=== PATIENT | female | born 2005 | race Caucasian/White ===

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

== ENCOUNTER 2023-05-01 15:21 | Emergency (ER) | payer MEDICAID ==
[~2023-05-01] VITALS: Ht 157.4 cm; Wt 56.6 kg
[~2023-05-01 15:21] MED LIST changes: +METR-145 PO; +PANT40TA2 PO
--- NOTE | 2023-05-01 15:44 | ED Cough/URI ---
General Chief Complaint: Fever-Adult/Adol Stated Complaint: FEVER/ACHY Nursing Triage Note: PT AMB TO RM 10 WITH CC OF CHILLS, FEVER, AND BODYACHES SINCE LAST PM. PT REPORTS FEVER OF 103.6 THIS AM. PT STATES LAST DOES OF TYLENOL AT APPROX 1100. PT REPORTS IS 10 WEEKS PREG. Source: patient Exam Limitations: no limitations History of Present Illness Date Seen by Provider: May 01, 2023 Time Seen by Provider: 15:31 Initial Comments Patient is a 17-year-old female G1, P0 who presents to the emergency room with a chief complaint of fevers, chills, body aches, headache onset last evening, early this morning. Patient is not COVID vaccinated, she does not get flu vaccines. She is approximately 10 weeks with an estimated due date of November 21, 2023. She states her cough is nonproductive. She is not short of carla ath. No abdominal pain. No dysuria, urgency or frequency. No abnormal vaginal discharge, no diarrhea. She denies known sick contacts but was in [place] about a week ago and went to a homecoming last evening. He has taken 1 Tylenol at 8 AM and 2 Tylenol at 11 AM this morning. She takes no daily medications other than vitamins. Her OB is Dr. Kaplan. She has not done any at home COVID testing. Timing/Duration: this morning Severity/Quality: dry cough Associated Symptoms: cough, fever/chills, headache, other (dizziness) Allergies and Home Medications Allergies Coded Allergies: ceftriaxone (Verified Allergy, Severe, 01/25/22) Penicillins (Verified Allergy, Unknown, 07/06/22) Patient Home Medication List Home Medication List Reviewed: Yes Cyclobenzaprine HCl (Cyclobenzaprine HCl) 5 Mg Tablet, 5 MG PO Q8H PRN for SPASMS Prescribed by: ROSALVA CEE on 02/05/222254 Metronidazole (Metronidazole) 500 Mg Tablet, 500 MG PO QID Prescribed by: CITLALI COLIN on 08/11/222238 Nitrofurantoin Monohyd/M-Cryst (Macrobid 100 mg Capsule) 100 Mg Capsule, 1 TAB PO BID Prescribed by: CITLALI COLIN on 07/20/22 0058 Pantoprazole Sodium (Protonix) 40 Mg Tablet.dr, 40 MG PO DAILY Prescribed by: CITLALI COLIN on 08/11/222238 Review of Systems Review of Systems Constitutional: see HPI, chills, fever EENTM: no symptoms reported Respiratory: cough Cardiovascular: no symptoms reported Gastrointestinal: no symptoms reported Genitourinary: no symptoms reported : Yes Expected Date of Delivery: Nov 21, 2023 Musculoskeletal: muscle cramps (body aches) Psychiatric/Neurological: Headache Past Yhooqjs-Tkulle-Yppgav Hx Patient Social History Tobacco Use?: No Substance use?: No Alcohol Use?: No Immunizations Up To Date Tetanus Booster (TDap): Less than 5yrs PED Vaccines UTD: Yes First/Initial COVID19 Vaccinat: none Second COVID19 Vaccination Zach: none Third COVID19 Vaccination Date: none Seasonal Allergies Seasonal Allergies: No Past Medical History Surgery/Hospitalization HX: DENIES Surgeries: No Respiratory: No Cardiac: Yes ("ENLARGED HEART" ) Neurological: No Reproductive Disorders: No Genitourinary: No Gastrointestinal: No Musculoskeletal: No Endocrine: No HEENT: No Cancer: No Psychosocial: Yes (POLYSUBSTANCE ABUSE) ADD/ADHD Integumentary: No Blood Disorders: No Physical Exam Vital Signs - First Documented 05/01/23 15:28 Temp 36.5 Pulse 116 Resp 16 B/P (MAP) 115/72 (86) Pulse Ox 98 Capillary Refill : Less Than 3 Seconds Height: 5'2.00" Weight: 125lbs. 2oz. 56.012587ma; 22.00 BMI Method:Stated General Appearance: WD/WN, no apparent distress Eyes: Bilateral Eye Normal Inspection, Bilateral Eye PERRL, Bilateral Eye EOMI HEENT: PERRL/EOMI, TMs normal, pharyngeal erythema Neck: lymphadenopathy (R), lymphadenopathy (L) (anterior cervical) Respiratory: lungs clear, normal breath sounds, no respiratory distress, no accessory muscle use Cardiovascular: regular rate, rhythm Gastrointestinal: soft Extremities: normal range of motion, non-tender, normal inspection, no pedal edema Neurologic/Psychiatric: alert, normal mood/affect, oriented x 3 Skin: normal color, warm/dry Procedures/Interventions Suture Size: 6-0 Progress/Results/Core Measures Suspected Sepsis SIRS Temperature: Pulse: 116 Respiratory Rate: 16 Blood Pressure / Mean: Results/Orders Lab Results Laboratory Tests Test 05/01/23 13:41 Range/Units Influenza Type A (RT-PCR) Not Detected Not Detecte Influenza Type B (RT-PCR) Not Detected Not Detecte SARS-CoV-2 RNA (RT-PCR) Detected H Not Detecte My Orders Orders - TANYA FARIA MD Covid 19 Inhouse Test (05/01/23 15:31) Influenza A And B By Pcr (05/01/23 15:31) Vital Signs/I&O 05/01/23 05/01/23 15:28 16:20 Temp 36.5 Pulse 116 112 Resp 16 16 B/P (MAP) 115/72 (86) 116/67 Pulse Ox 98 98 Capillary Refill : Less Than 3 Seconds Progress Note : Time: 15:44 Progress Note Patient seen and evaluated by me. Eval today includes physical exam and covid test. Pertinet phys exam findings - WDWN female in NAD. She is mildly tachycardic with normal temperature and BP. Lungs are clear. Heart is regular. Abdomen is soft and benign. DDx based on H&P - covid, nonspecific viral syndrome. Labs reviewed by me - Covid positive. Patient advised to drink fluids and use medications safe in such as pseudaphed or benadryl for congestion. I advised her to call her OB doctor tomorrow for further instructions for care. Patient has no clinical or objective findings to warrant further eval such as labs or IV fluids. All questions are sought and answered. Return precautions provided in both verbal and written format. Departure Impression Primary Impression: COVID-19 virus infection Disposition: 01 HOME, SELF-CARE Condition: Stable Departure-Patient Inst. Decision time for Depature: 15:41 Referrals: NO,LOCAL PHYSICIAN (PCP) Primary Care Physician MANJINDER KAPLAN DO Patient Instructions: COVID-19 and Add. Discharge Instructions: Drink lots of fluids to stay well-hydrated, water, Pedialyte, Gatorade. Call Dr Kaplan's office tomorrow morning first thing to see if she wants you to start any new medications for the Covid symptoms. You can take prie-ebd-uxsmxbu extra strength Tylenol 2 tablets every 6 hours as needed for fever and body aches. You can also take Sudafed and/or Benadryl for congestion. Robitussin is also safe in . Continue your vitamins. Please follow-up with Dr. Kaplan as scheduled. Return to the emergency department for any new, concerning or emergent complaints. TANYA FARIA MD May 01, 2023 15:44
[2023-05-01 16:20] VITALS: BP 116/67
== END 2023-05-01 16:20 | disposition home or self-care (01) ==
LOC: EDUNIT# 15:21 → ER 15:23
DX: O98.511 Other viral diseases complicating pregnancy, first trimester (principal); U07.1 COVID-19; R50.9 Fever, unspecified; Z3A.10 10 weeks gestation of pregnancy; Z28.310 Unvaccinated for COVID-19
CPT/HCPCS: 87636; 99283

== ENCOUNTER 2023-05-02 22:35 | Emergency (ER) | payer MEDICAID ==
[~2023-05-02] VITALS: Ht 157 cm; Wt 56.6 kg
--- NOTE | 2023-05-02 22:57 | ED General ---
General Chief Complaint: Abdominal/GI Problems Stated Complaint: LOWER ABD PAIN/COVID +/11 WKS PREG Nursing Triage Note: C/O LOWER ABDOMINAL PAIN X1HR. COVID +, APPROX. 11 WEEKS Source of Information: Patient Exam Limitations: No Limitations History of Present Illness Date Seen by Provider: May 02, 2023 Time Seen by Provider: 22:44 Allergies and Home Medications Allergies Coded Allergies: ceftriaxone (Verified Allergy, Severe, 01/25/22) Penicillins (Verified Allergy, Unknown, 07/06/22) Patient Home Medication List Cyclobenzaprine HCl (Cyclobenzaprine HCl) 5 Mg Tablet, 5 MG PO Q8H PRN for SPASMS Prescribed by: ROSALVA CEE on 02/05/22 2255 Metronidazole (Metronidazole) 500 Mg Tablet, 500 MG PO QID Prescribed by: CITLALI COLIN on 08/11/222238 Nitrofurantoin Monohyd/M-Cryst (Macrobid 100 mg Capsule) 100 Mg Capsule, 1 TAB PO BID Prescribed by: CITLALI COLIN on 07/20/22 0058 Pantoprazole Sodium (Protonix) 40 Mg Tablet.dr, 40 MG PO DAILY Prescribed by: CITLALI COLIN on 08/11/222238 Review of Systems Review of Systems Expected Date of Delivery: Nov 21, 2023 Past Pcuxwim-Sbyqka-Ysnrlm Hx Patient Social History Tobacco Use?: No Substance use?: No Alcohol Use?: No Pt feels they are or have been: No Immunizations Up To Date Tetanus Booster (TDap): Less than 5yrs PED Vaccines UTD: Yes First/Initial COVID19 Vaccinat: none Second COVID19 Vaccination Zach: none Third COVID19 Vaccination Date: none Seasonal Allergies Seasonal Allergies: No Past Medical History Surgery/Hospitalization HX: DENIES Surgeries: No Respiratory: No Cardiac: Yes ("ENLARGED HEART" ) Neurological: No Expected Date of Delivery: Nov 21, 2023 Reproductive Disorders: No Genitourinary: No Gastrointestinal: No Musculoskeletal: No Endocrine: No HEENT: No Cancer: No Psychosocial: Yes (POLYSUBSTANCE ABUSE) ADD/ADHD Integumentary: No Blood Disorders: No Physical Exam Vital Signs Vital Signs - First Documented 05/02/23 22:40 Temp 36.3 Pulse 107 Resp 16 B/P (MAP) 129/74 (92) Pulse Ox 98 O2 Delivery Room Air Capillary Refill : Less Than 3 Seconds Height, Weight, BMI Height: 5'2.00" Weight: 125lbs. 2oz. 56.143228rp; 22.00 BMI Method:Stated Procedures/Interventions Suture Size: 6-0 Progress/Results/Core Measures Suspected Sepsis SIRS Temperature: Pulse: 107 Respiratory Rate: 16 Laboratory Tests 05/02/23 23:00: White Blood Count 7.4 Blood Pressure 129 /74 Mean: 92 Laboratory Tests 05/02/23 23:00: Creatinine 0.59L, Platelet Count 175, Total Bilirubin 0.2 Results/Orders Lab Results Laboratory Tests Test 05/02/23 23:00 05/02/23 23:15 Range/Units White Blood Count 7.4 4.3-11.0 10^3/uL Red Blood Count 4.15 3.80-5.11 10^6/uL Hemoglobin 12.4 11.5-16.0 g/dL Hematocrit 36 35-52 % Mean Corpuscular Volume 87 80-99 fL Mean Corpuscular Hemoglobin 30 25-34 pg Mean Corpuscular Hemoglobin Concent 34 32-36 g/dL Red Cell Distribution Width 13.1 10.0-14.5 % Platelet Count 175 130-400 10^3/uL Mean Platelet Volume 10.6 9.0-12.2 fL Immature Granulocyte % (Auto) 1 % Neutrophils (%) (Auto) 73 42-75 % Lymphocytes (%) (Auto) 17 12-44 % Monocytes (%) (Auto) 8 0-12 % Eosinophils (%) (Auto) 2 0-10 % Basophils (%) (Auto) 0 0-10 % Neutrophils # (Auto) 5.4 1.8-7.8 10^3/uL Lymphocytes # (Auto) 1.2 1.0-4.0 10^3/uL Monocytes # (Auto) 0.6 0.0-1.0 10^3/uL Eosinophils # (Auto) 0.1 0.0-0.3 10^3/uL Basophils # (Auto) 0.0 0.0-0.1 10^3/uL Immature Granulocyte # (Auto) 0.0 0.0-0.1 10^3/uL Sodium Level 138 135-145 MMOL/L Potassium Level 3.9 3.6-5.0 MMOL/L Chloride Level 107 98-107 MMOL/L Carbon Dioxide Level 23 21-32 MMOL/L Anion Gap 8 5-14 MMOL/L Blood Urea Nitrogen 6 L 7-18 MG/DL Creatinine 0.59 L 0.60-1.30 MG/DL Estimat Glomerular Filtration Rate 133 BUN/Creatinine Ratio 10 Glucose Level 74 70-105 MG/DL Calcium Level 8.6 8.5-10.1 MG/DL Corrected Calcium 9.0 8.5-10.1 MG/DL Magnesium Level 1.8 1.6-2.4 MG/DL Total Bilirubin 0.2 0.1-1.0 MG/DL Aspartate Amino Transf (AST/SGOT) 17 5-34 U/L Alanine Aminotransferase (ALT/SGPT) 11 0-55 U/L Alkaline Phosphatase 32 L 40-136 U/L C-Reactive Protein High Sensitivity 2.09 H 0.00-0.50 MG/DL Total Protein 5.8 L 6.4-8.2 GM/DL Albumin 3.5 3.2-4.5 GM/DL Lipase 17 8-78 U/L Urine Color YELLOW Urine Clarity CLOUDY Urine pH 7.0 5-9 Urine Specific [place] 1.025 H 1.016-1.022 Urine Protein NEGATIVE NEGATIVE Urine Glucose (UA) NEGATIVE NEGATIVE Urine Ketones NEGATIVE NEGATIVE Urine Nitrite NEGATIVE NEGATIVE Urine Bilirubin NEGATIVE NEGATIVE Urine Urobilinogen 0.2 < = 1.0 MG/DL Urine Leukocyte Esterase NEGATIVE NEGATIVE Urine RBC (Auto) NEGATIVE NEGATIVE Urine RBC NONE /HPF Urine WBC NONE /HPF Urine Squamous Epithelial Cells 5-10 /HPF Urine Crystals PRESENT H /LPF Urine Amorphous Sediment MOD ALONZO PHOSPHATE H /LPF Urine Bacteria NEGATIVE /HPF Urine Casts NONE /LPF Urine Mucus NEGATIVE /LPF Urine Culture Indicated NO My Orders Orders - DELON CARDOZA MD Ua Culture If Indicated (05/02/23 22:43) Ed Iv/Invasive Line Start (05/02/23 22:56) Lactated Ringers 1,000 Ml (Lactated Ring (05/02/23 23:00) Cbc With Automated Diff (05/02/23 22:56) Comprehensive Metabolic Panel (05/02/23 22:56) Hs C Reactive Protein (05/02/23 22:56) Lipase (05/02/23 22:56) Magnesium (05/02/23 22:56) Acetaminophen Tablet (Acetaminophen Ta (05/02/23 23:00) Medications Given in ED Current Medications Medications Dose Ordered Sig/Alfonso Route Start Time Stop Time Status Last Admin Dose Admin Acetaminophen 1,000 mg ONCE ONCE PO 05/02/23 23:00 05/02/23 23:01 DC 05/02/23 23:05 1,000 MG Lactated Ringer's 1,000 ml @ 0 mls/hr Q0M ONCE IV 05/02/23 23:00 05/02/23 23:01 DC 05/02/23 23:05 0 MLS/HR Vital Signs/I&O 05/02/23 05/02/23 22:40 23:05 Temp 36.3 36.3 Pulse 107 Resp 16 B/P (MAP) 129/74 (92) Pulse Ox 98 O2 Delivery Room Air Capillary Refill : Less Than 3 Seconds Blood Pressure Mean: 92 Departure Impression Primary Impression: Nausea vomiting and diarrhea Additional Impressions: COVID-19 virus infection Generalized abdominal pain Disposition: HOME, SELF-CARE Condition: Stable Departure-Patient Inst. Referrals: NO,LOCAL PHYSICIAN (PCP/Family) Primary Care Physician Patient Instructions: Abdominal Pain, Adult ED, COVID-19 ED Add. Discharge Instructions: Drink plenty of clear liquids to stay well hydrated. Eat a well-balanced diet. You may take Tylenol (acetaminophen) up to 1000 mg every 6 hours as needed for pain or fever. Contact Dr. Kaplan tomorrow to provide an update and receive further instructions if any. Follow quarantine guidelines from the CDC. Household members and close contacts should also follow CDC quarantine guidelines. Return to care if you have worsening symptoms despite following these instructions. All discharge instructions reviewed with patient and/or family. Voiced understanding. DELON CARDOZA MD May 02, 2023 22:57
[2023-05-02] MEDS ORDERED: ACETAMINOPHEN 500 MG TABLET PO ONE (23:00)
[2023-05-02] MEDS ORDERED: LACTATED RINGERS 1,000 ML 1,000 ML IV ONE (23:00)
[2023-05-02 23:12] LABS: BASOPHILS % (AUTO) 0 % (0-10); EOSINOPHILS # (AUTO) 0.1 10^3/uL (0.0-0.3); EOSINOPHILS % (AUTO) 2 % (0-10); HEMATOCRIT 36 % (35-52); HEMOGLOBIN 12.4 g/dL (11.5-16.0); LYMPHOCYTES # (AUTO) 1.2 10^3/uL (1.0-4.0); LYMPHOCYTES % (AUTO) 17 % (12-44); MEAN CORPUSCULAR HEMOGLOBIN 30 pg (25-34); MEAN CORPUSCULAR HGB CONC 34 g/dL (32-36); MEAN CORPUSCULAR VOLUME 87 fL (80-99); MEAN PLATELET VOLUME 10.6 fL (9.0-12.2); MONOCYTES # (AUTO) 0.6 10^3/uL (0.0-1.0); MONOCYTES % (AUTO) 8 % (0-12); NEUTROPHILS # (AUTO) 5.4 10^3/uL (1.8-7.8); NEUTROPHILS % (AUTO) 73 % (42-75); PLATELET COUNT 175 10^3/uL (130-400); WHITE BLOOD COUNT 7.4 10^3/uL (4.3-11.0)
[2023-05-02 23:33] LABS: AMORPHOUS SEDIMENT,UR MOD AMOR PHOSPHATE /LPF; BACTERIA,URINE NEGATIVE /HPF; BILIRUBIN,URINE NEGATIVE (NEGATIVE); CLARITY,URINE CLOUDY; COLOR,URINE YELLOW; GLUCOSE, URINE (UA) NEGATIVE (NEGATIVE); KETONES,URINE NEGATIVE (NEGATIVE); LEUKOCYTE ESTERASE ,URINE NEGATIVE (NEGATIVE); NITRITE,URINE NEGATIVE (NEGATIVE); PROTEIN,URINE NEGATIVE (NEGATIVE)
[2023-05-02 23:33] LABS: ALBUMIN 3.5 GM/DL (3.2-4.5); BILIRUBIN,TOTAL 0.2 MG/DL (0.1-1.0); CALCIUM 8.6 MG/DL (8.5-10.1); CREATININE SERUM 0.59 MG/DL (0.60-1.30); MAGNESIUM 1.8 MG/DL (1.6-2.4); POTASSIUM 3.9 MMOL/L (3.6-5.0); TOTAL PROTEIN 5.8 GM/DL (6.4-8.2)
[2023-05-03 00:08] VITALS: BP 106/65
== END 2023-05-03 00:10 | disposition home or self-care (01) ==
LOC: EDUNIT# 22:35 → ER 22:38
DX: O98.511 Other viral diseases complicating pregnancy, first trimester (principal); U07.1 COVID-19; O99.611 Diseases of the digestive system complicating pregnancy, first trimester; R19.7 Diarrhea, unspecified; O21.9 Vomiting of pregnancy, unspecified; O26.891 Other specified pregnancy related conditions, first trimester; R10.84 Generalized abdominal pain; Z3A.11 11 weeks gestation of pregnancy; Z28.310 Unvaccinated for COVID-19
CPT/HCPCS: 36415; 80053; 81000; 83690; 83735; 85025; 86141

== ENCOUNTER → 2023-07-05 | Outpatient (CLI) | payer MEDICAID ==
--- NOTE | 2023-07-05 17:08 | Diagnostic Imaging Report ---
INDICATION: anatomy survey TECHNIQUE: Multiple real-time grayscale images were obtained over the gravid uterus. COMPARISON: None FINDINGS: The cervix measures 4.5 cm in length. The amount of amniotic fluid is normal at 13.0 cm. Placenta is posterior in position and there is no previa. heart rate is regular at 158 bpm. Fetus is in cephalic presentation. The following anatomy is visualized and normal: Spine, stomach, four-chamber heart, kidneys, lips/nose, cerebral ventricles, urinary bladder, profile, three-vessel cord, cerebellum. Biometrical measurements are as follows: Biparietal 4.74 cm, age 20 weeks 3 days. Head circumference 17.30 cm, age 19 weeks 6 days. Abdominal circumference 14.98 cm, age 20 weeks 2 days. Femur length 3.25 cm, age 20 weeks 1 days. Sonographic estimate age: 20 weeks 2 days. Sonographic estimated date of delivery: 11/20/2023. Estimated Weight: 336 gm (+/- 49 gm). LMP percentile: 46%. heart rate: 158 beats per minute. number: 1 of 1. IMPRESSION: 1. Single live intrauterine has normal anatomy survey. Dictated by: Dictated on workstation # [id number]
== END ==
LOC: RAD 14:30
PROVIDERS: ATTEND Obstetrics & Gynecology
DX: Z36.89 Encounter for other specified antenatal screening (principal); Z3A.20 20 weeks gestation of pregnancy
CPT/HCPCS: 76805

== ENCOUNTER 2023-07-27 01:47 | Outpatient (CLI) | payer MEDICAID ==
[~2023-07-27] VITALS: Ht 160 cm; Wt 67.4 kg
[2023-07-27 02:09] VITALS: BP 122/68
[2023-07-27 02:27] LABS: BILIRUBIN,URINE NEGATIVE (NEGATIVE); CLARITY,URINE CLOUDY; COLOR,URINE YELLOW; GLUCOSE, URINE (UA) NEGATIVE (NEGATIVE); KETONES,URINE NEGATIVE (NEGATIVE); NITRITE,URINE NEGATIVE (NEGATIVE); PROTEIN,URINE 1+ (NEGATIVE)
[2023-07-27 02:28] LABS: BACTERIA,URINE LARGE /HPF; LEUKOCYTE ESTERASE ,URINE 3+ (NEGATIVE); WBC,URINE 50-100 /HPF; YEAST,URINE FEW /HPF
[2023-07-27] MEDS ORDERED: NITROFURANTOIN Monohydrate/Macro 100 MG CAPSULE PO ONE (02:45)
[2023-07-27] MEDS ORDERED: PREN-142 PO (02:46)
[2023-07-27] MEDS ORDERED: NITR100C10 PO (02:48)
--- NOTE | 2023-07-28 08:43 | Physician Query-Final Dx ---
EVERETT07/28/23 0842: Clinic Account Progress/Dx Physician Query: Please give diagnosis Please include # weeks gestation Date of Service Jul 27, 2023 at 01:47 JENNIFER GREGORIO DO 07/28/23 1133: Clinic Account Progress/Dx DIAGNOSIS: Diagnosis 30 week lower abdominal pain UTI uncomplicated [place],AugJul 28, 2023 08:42 JENNIFER GREGORIO DO Jul 28, 2023 11:33
== END 2023-07-27 03:15 | disposition home or self-care (01) ==
LOC: WSo 01:47 → LDRP 01:47 → WSo 03:15
PROVIDERS: ATTEND Obstetrics & Gynecology
DX: O23.43 Unspecified infection of urinary tract in pregnancy, third trimester (principal); Z3A.30 30 weeks gestation of pregnancy
CPT/HCPCS: 81000; 87077; 87088; 99213